=== PATIENT | male | born 1990 | race Two or more races ===

== ENCOUNTER 2019-11-30 09:12 | Day surgery (SDC) | payer BC ==
[2019-11-30] VITALS (8 sets, daily range): BP systolic 98–117; BP diastolic 59–77
[~2019-11-30] VITALS: Ht 182.9 cm; Wt 65.8 kg
--- NOTE | 2019-11-30 06:36 | Anethesia Preoperative Eval ---
Anesthesia Pre-op PMH/ROS General Date of Evaluation: Nov 30, 2019 Anesthesiologist: Gamaliel ASA Score: ASA 2 Mallampati Score Class I : Soft palate, uvula, fauces, pillars visible Class II: Soft palate, uvula, fauces visible Class III: Soft palate, base of uvula visible Class IV: Only hard plate visible Mallampati Classification: Class II Surgeon: Lauri Diagnosis: Screening Surgical Procedure: EGD and colonoscopy Anesthesia History: none Family History: no anesthesia problems Allergies: Coded Allergies: No Known Allergies (Unverified , 11/30/19) Medications: see eMAR Patient NPO?: Yes NPO Date: Nov 30, 2019 NPO Time: 00:00 Past Medical History Cardiovascular: Reports: other - HLD; Denies: HTN, CAD, [place], valve dz, arrhythmia Pulmonary: Denies: asthma, COPD, BARBARA, other Gastrointestinal/Genitourinary: Denies: GERD, CRI, ESRD, other Neurologic/Psychiatric: Denies: dementia, CVA, depression/anxiety, TIA, other Endocrine: Denies: DM, hypothyroidism, steroids, other HEENT: Denies: cataract (L), cataract (R), glaucoma, ENTERPRISE (L), ENTERPRISE (R), other Hematology/Immune: Denies: anemia, DVT, bleeding disorder, other Musculoskeletal/Integumentary: Denies: OA, RA, DJD, DDD, edema, other PSxH Narrative: T&A Anesthesia Pre-op Phys. Exam Physician Exam see chart Constitutional: NAD Cardiovascular: RRR Respiratory: CTA Airway Exam Mallampati Score: Class II MO: full ROM: full Anesthesia Pre-op A/P Labs see chart Risk Assessment & Plan Assessment: ASA II Plan: MAC Status Change Before Surgery: No Pre-Antibiotics Drug: N/A Izabel Alston MD Nov 30, 2019 06:36
[2019-11-30] MEDS ORDERED: Labetalol 5mg/ml 20ml vial IV PRN ×2 (09:45→10:45)
[2019-11-30] MEDS ORDERED: DiphenhydrAMINE 50mg/ml Inj IVP PRN ×2 (09:45→10:45)
[2019-11-30] MEDS ORDERED: LR 1000ml 1,000 ML IVLG SCH ×2 (09:45→10:45)
[2019-11-30] MEDS ORDERED: CRESTOR40 MG ORAL (09:49)
--- NOTE | 2019-11-30 10:27 | Short Stay Surgery H&P ---
History of Present Illness History of Present Illness Chief Complaint see H&P HPI Claudio Moshe Garg is a 29 year old male who was admitted on for Gastric Patient History Allergies: Coded Allergies: No Known Allergies (Unverified , 11/30/19) Medication History Scheduled Rosuvastatin Calcium* (Crestor*), 40 MG ORAL DAILY, (Reported) Physical Exam Vital Signs Last Vital Signs Date Time Temp Pulse Resp B/P (MAP) Pulse Ox O2 Delivery O2 Flow Rate FiO2 11/30/19 09:44 Room Air 11/30/19 09:44 97.0 70 18 114/61 100 Plan Attestation Are the patient's medical conditions optimized for surgery? Che Carreon MD Nov 30, 2019 10:27
--- NOTE | 2019-11-30 10:28 | Pre-Procedure Note/Attestation ---
Pre-Procedure Note/Attestation Complete Prior to Procedure Planned Procedure: not applicable Procedure Narrative: esophagogastroduodenoscopy colon Indications for Procedure Pre-Operative Diagnosis: RLQ pain / TTP, CP, elevated inflamm markers Attestation I attest that I discussed the nature of the procedure; its benefits; risks and complications; and alternatives (and the risks and benefits of such alternatives), prior to the procedure, with the patient (or the patient's legal pharmacy services representative). I attest that, if there was a reasonable possibility of needing a blood transfusion, the patient (or the patient's legal pharmacy services representative) was given the [facility] standardized written summary, pursuant to the Agustin Sunriver Blood Safety Act ([place] Health and Safety Code # 1645, as amended). I attest that I re-evaluated the patient just prior to the surgery and that there has been no change in the patient's H&P, except as documented below: Che Carreon MD Nov 30, 2019 10:28
[2019-11-30] MEDS ORDERED: LR 1000ml ONE (10:30)
[2019-11-30] MEDS ORDERED: Lidocaine 1% MPF 10mg/ml 5ml ONE (10:30)
[2019-11-30] MEDS ORDERED: HYDROcodone/Acetamin 7.5/325 tab ORAL PRN (10:45)
[2019-11-30] MEDS ORDERED: Midazolam 2mg/2ml Inj IVP PRN (10:45)
[2019-11-30] MEDS ORDERED: Atropine Sulfate 0.4mg/ml inj IVP PRN (10:45)
[2019-11-30] MEDS ORDERED: Metoclopramide 10mg/2ml Inj IVP PRN (10:45)
[2019-11-30] MEDS ORDERED: Meperidine 25mg/0.5ml Inj (FOR RIGORS ONLY) IV PRN (10:45)
[2019-11-30] MEDS ORDERED: Hydromorphone 0.5mg/0.5ml inj IVP PRN (10:45)
[2019-11-30] MEDS ORDERED: Ketorolac 30mg Inj IV PRN ×2 (10:45)
[2019-11-30] MEDS ORDERED: fentaNYL 100 mcg/2 mL IV PRN (10:45)
[2019-11-30] MEDS ORDERED: LORazepam Inj 2mg/ml 1ml IV PRN (10:45)
[2019-11-30] MEDS ORDERED: oxyCODONE HCL/Acetaminophen 5/325mg ORAL PRN (10:45)
[2019-11-30] MEDS ORDERED: HYDROcodone/Acetamin 5/325 tab ORAL PRN (10:45)
--- NOTE | 2019-11-30 10:48 | Immediate Post-Op Evaluation ---
Immediate Post-Op Evalulation Immediate Post-Op Evalulation Procedure: EGD, Colonoscopy Date of Evaluation: Nov 30, 2019 Time of Evaluation: 11:29 IV Fluids: 600 LR Blood Products: 0 Estimated Blood Loss: 1 Urinary Output: 0 Blood Pressure Systolic: 99 Blood Pressure Diastolic: 64 Pulse Rate: 79 Respiratory Rate: 16 O2 Sat by Pulse Oximetry: 100 Temperature (Fahrenheit): 97.9 Pain Score (1-10): 1 Nausea: No Vomiting: No Complications 0 Patient Status: awake, reacts, patent, none Hydration Status: adequate Al Arenas MD Nov 30, 2019 10:48
--- NOTE | 2019-11-30 11:19 | 48 Hour Post Anesthesia Eval ---
Post Anesthesia Evaluation Procedure: EGD, Colonoscopy Date of Evaluation: Nov 30, 2019 Time of Evaluation: 13:43 Blood Pressure Systolic: 113 0: 73 Pulse Rate: 81 Respiratory Rate: 18 Temperature (Fahrenheit): 98 O2 Sat by Pulse Oximetry: 100 Airway: patent Nausea: No Vomiting: No Pain Intensity: 2 Hydration Status: adequate Cardiopulmonary Status: Stable Mental Status/LOC: patient returned to baseline Follow-up Care/Observations: 0 Post-Anesthesia Complications: 0 Follow-up care needed: ready to discharge Al Arenas MD Nov 30, 2019 11:19
--- NOTE | 2019-11-30 11:59 | Procedure Note ---
DATE OF PROCEDURE: 11/30/2019 GASTROENTEROLOGY PROCEDURE REPORT PROCEDURE: Upper gastrointestinal endoscopy with biopsy as well as colonoscopy with biopsy. SURGEON: Joe Carreon MD. ANESTHESIA: Al Arenas MD. PRE-ENDOSCOPIC DIAGNOSES: 1. Chest pain and atypical upper GI motility symptoms. 2. Right lower quadrant abdominal pain with elevated inflammatory bowel disease markers. POST-ENDOSCOPIC DIAGNOSES: 1. Ring like contraction throughout the esophagus with resistance to pushing and pulling of the endoscope suggestive of eosinophilic esophagitis. 2. Status post random biopsies of the antrum and midesophagus. 3. Normal colonoscopy and terminal ileum for about 15 cm, status post random biopsies. DESCRIPTION OF PROCEDURE: The procedure, its risks, indications, alternatives, and possible complications including but not limited to bleeding, infection, perforation, , and anesthesia complications were explained to the patient and informed consent was obtained. The patient was then sedated in the left lateral decubitus position. A diagnostic upper endoscope was introduced through oropharynx and advanced to the distal esophagus. At this juncture, further advancement could not be possible due to the contraction of the esophagus and pulling of the scope. There were however no mass lesions identified. The endoscope was removed and replaced with slightly more narrow endoscope did passed through and was it advanced to the duodenum. The duodenal mucosa and gastric mucosa were normal and random biopsies of the antrum were sent to the pathology for review. Once again; however, the esophagus showed diffuse ring-like contractions with a resistance of both pulling and pushing of the endoscope. Random biopsies of the midesophagus were sent to pathology for review. The endoscope was removed. The rectal exam was done. The colonoscope was introduced into the rectum and advanced to 15 cm into the terminal ileum. The colonoscope was then gradually withdrawn and the mucosa examined carefully. No significant pathology was identified and random biopsies of the terminal ileum, right colon and left colon were sent to pathology for review. Retroflex view of the rectum was unremarkable. The colonoscope was removed and the patient was sent to recovery in good condition. COMPLICATIONS: None. RECOMMENDATIONS: 1. Followup biopsy results. 2. Outpatient followup for assessment and recommendations. Thank you for asking me to participate in the care of this patient. Joe Carreon M.D. DR: Marco JOB#: [id number] CC: Ronnie Metz M.D.; Fax#: [phone] JOE CARREON M.D. ; FAX#: [phone] [facility]
--- NOTE | 2019-11-30 14:10 | Brief Operative Note ---
Immediate Post Operative Note Operative Note Chief Complaint: CP Abd pain Pre-op Diagnosis: RLQ pain / TTP, CP, elevated inflamm markers Procedure: esophagogastroduodenoscopy colon Post-op Diagnosis: 1. Ring like contraction throughout the esophagus with resistance to pushing and pulling of the endoscope suggestive of eosinophilic esophagitis. 2. Status post random biopsies of the antrum and midesophagus. 3. Normal colonoscopy and terminal ileum for about 15 cm, status post random biopsies Specimen: yes Complications: none Fluids: per anesthesia Implant(s) used?: No Che Carreon MD Nov 30, 2019 14:10
--- NOTE | 2019-11-30 14:10 | Endoscopy Procedure Note ---
Endoscopy Procedure Note General Indication for Procedure: CP, abd pain Procedures Performed: EGD, colonoscopy Operative Findings/Diagnosis: R/O EE, negative colon/TI Bx, Bx Anesthesia Anesthesiologist: Deepa Anesthesia: MAC Medications Medication Given: see anesthesia record Inserted Devices Implant(s) used?: No GI Core Measures 50 yrs or older w/o bx or poly: Not Applicable 10yrs. F/U recommended: Not Applicable Che Carreon MD Nov 30, 2019 14:10
== END 2019-11-30 13:00 | disposition home or self-care (01) ==
LOC: GAS 09:12
DX: R07.9 Chest pain, unspecified (principal); R10.31 Right lower quadrant pain; K29.50 Unspecified chronic gastritis without bleeding; E78.5 Hyperlipidemia, unspecified; E78.00 Pure hypercholesterolemia, unspecified
CPT/HCPCS: 43239; 45380; 94003; J2250; J2704; J7120; U0002; 94150